=== PATIENT | female | born 1995 | race Two or more races ===

== ENCOUNTER 2017-02-10 06:33 | Inpatient (IN) | payer OTHER ==
[~2017-02-10] VITALS: Ht 157.5 cm; Wt 96.6 kg
[2017-02-10] MEDS ORDERED: IV RINGERS,LACTATED 1000ML 1,000 ML IV SCH (06:59)
[2017-02-10] MEDS ORDERED: LIDOCAINE 1% PF 30 ML VIAL. INJ PRN (07:00)
[2017-02-10] MEDS ORDERED: OXYTOCIN in NORMAL SALINE PREMIX 30 UNIT/500 ML BAG. IV ONE (07:00)
[2017-02-10] MEDS ORDERED: OXYTOCIN 30 UNIT/500 ML PREMIX 500 ML IV PRN ×3 (07:00→07:30)
[2017-02-10] MEDS ORDERED: HYDROCORTISONE 1% TOPICAL OINTMENT 30GM TUBE. TP PRN ×2 (07:30)
[2017-02-10] MEDS ORDERED: PHENYLEPH/MINERAL OIL/PETROLAT RECTAL OINTMENT 28GM TUBE. RC PRN ×2 (07:30)
[2017-02-10] MEDS ORDERED: ACETAMINOPHEN 325 MG TABLET. PO PRN ×2 (07:30)
[2017-02-10] MEDS ORDERED: DOCUSATE SODIUM 100 MG CAPSULE. PO PRN (07:30)
[2017-02-10] MEDS ORDERED: MAG HYDROX/ALUMINUM HYD/SIMETH 30 ML ORAL.SUSP PO PRN ×2 (07:30)
[2017-02-10] MEDS ORDERED: diphenhydrAMINE HCL 25 MG CAPSULE PO PRN ×2 (07:30)
[2017-02-10] MEDS ORDERED: MAGNESIUM HYDROXIDE 2,400 MG/30 ML ORAL.SUSP. PO PRN ×2 (07:30)
[2017-02-10] MEDS ORDERED: ZOLPIDEM 5 MG TABLET. PO PRN ×2 (07:30)
[2017-02-10] MEDS ORDERED: BENZOCAINE 20% TOPICAL AEROSOL SPRAY 57GM CAN. TP PRN ×2 (07:30)
[2017-02-10] MEDS ORDERED: 0.9 % SODIUM CHLORIDE 10 ML DISP.SYRIN. IV PRN ×2 (07:30)
[2017-02-10] MEDS ORDERED: SIMETHICONE 80 MG TAB.CHEW PO PRN ×2 (07:30)
--- NOTE | 2017-02-10 07:40 | PDOC ---
VAGINAL DELIVERY DATE DATE: 02/10/17 TIME: 07:36 : 1 EGA: 31 VAGINAL DELIVERY: VTX VACCUM ASSISTED: No PLACENTA: Spontaneous SEX: Male WEIGHT Weight [ ] Nuchal Cord: No Amniotic Fluid: Clear PAIN: Natural EPISIOTOMY: No EXTENSION: No EBL 400cc COMPLICATIONS PTL Probable abruption CONDITION Stable Signs of Intrauterine Infectio: None Shoulder Dystocia: No DIAGNOSIS 31 wk IUP delivered Problems: JOSÉ SANFORD MD Feb 10, 2017 07:40
[2017-02-10 08:00] LABS: BASO % 0 % (0-3); EOS % 2 % (0-3); HEMATOCRIT 36.1 % (36.0-47.0); HEMOGLOBIN 12.6 g/dL (12.0-15.5); LYMPH # 1.3 x10^3/uL (1.0-4.8); LYMPH % 12 % (24-48); MEAN CORPUSCULAR HEMOGLOBIN 32 pg (25-35); MEAN CORPUSCULAR HGB CONC 35 g/dL (31-37); MEAN CORPUSCULAR VOLUME 91 fL (79-100); MONO % 5 % (0-9); NEUT % 81 % (31-73); PLATELET COUNT 264 x10^3/uL (140-400); RED BLOOD COUNT 3.95 x10^6/uL (3.50-5.40); WHITE BLOOD COUNT 10.5 x10^3/uL (4.0-11.0)
[2017-02-10] MEDS ORDERED: FERROUS SULFATE 325 MG TABLET. PO SCH (08:00)
[2017-02-10] MEDS ORDERED: FERROUS SULFATE 325 MG TABLET PO SCH ×2 (08:00)
[2017-02-10 08:20] LABS: ALBUMIN 2.9 g/dL (3.4-5.0); ALBUMIN/GLOBULIN RATIO 0.9 (1.0-1.7); CALCIUM 8.7 mg/dL (8.5-10.1); CREATININE 0.6 mg/dL (0.6-1.0); GFR 128.8; POTASSIUM 3.8 mmol/L (3.5-5.1); TOTAL BILIRUBIN 0.3 mg/dL (0.2-1.0); TOTAL PROTEIN 6.3 g/dL (6.4-8.2); URIC ACID 3.6 mg/dL (2.6-6.0)
[2017-02-10 08:46] LABS: BARBITURATES NEG (NEG); BENZODIAZEPINES NEG (NEG); CANNABINOIDS NEG (NEG); COCAINE NEG (NEG); METHADONE NEG (NEG); OPIATES NEG (NEG); PHENCYCLIDINE NEG (NEG)
[2017-02-10 08:51] LABS: ETHANOL, URINE NEG (NEG)
--- NOTE | 2017-02-10 11:17 | PDOC1 ---
OB - History Hx of Present Care: Good Care Ultrasounds: No ultrasounds Obstetrical Complications: None Medical Complications: None Past Family/Social History * Past Medical, Surgical, Family and Obstetric Histories reviewed from chart. Blood Type: Unknown Rubella: Unknown RPR/VDRL: Unknown GBS Status: Unknown HBsAG: Unknown OB - Chief Complaint & HPI Date of Admission: Date of Admission: Feb 10, 2017 at 06:33 Chief Complaint/History : 1 Para: 0 EDC: Apr 09, 2017 EGA: 19/03 Reason for admission: active labor, IUP - , labor, vaginal bleeding Admission Nurse Assessment Rev: Yes Problems: OB - Admission Exam Physical Exam HEENT: Normal, Nasal Mucosa Normal, Oropharynx Normal, Moist Membranes, Fontanelles Normal Heart: Other (tachy) Lungs: Clear, Equal Abdomen: Gravid, Non tender Extremities: Normal Pulses, No tenderness or swelling Reflexes: Normal Cervical Dilatation: 10cm Effacement: 100% Station: +2 Membranes: Intact Amniotic Fluid: Clear Heart Rate: Bradycardia Contractions on Admission: < 5 Minutes Apart Intensity: Firm Assessment/Plan Assessment/Plan 19/03 IUP Vag bleeding bradycardia Proceed to delivery JOSÉ SANFORD MD Feb 10, 2017 11:17
[2017-02-10 12:00] VITALS: BP 112/76
[2017-02-10 13:00] VITALS: BP 114/74
[2017-02-10 16:30] VITALS: BP 118/76
[2017-02-10 19:40] VITALS: BP 118/74
[2017-02-10] MEDS: SENNOSIDES/DOCUSATE 8.6/50MG TABLET. PO SCH (21:00)
[2017-02-10] MEDS: IBUPROFEN 800 MG TABLET. PO SCH (21:14)
[2017-02-10 22:30] VITALS: BP 116/66
[2017-02-11 05:51] LABS: BASO # 0.1 x10^3/uL (0.0-0.2); BASO % 1 % (0-3); EOS % 3 % (0-3); HEMATOCRIT 33.6 % (36.0-47.0); HEMOGLOBIN 11.6 g/dL (12.0-15.5); LYMPH # 2.9 x10^3/uL (1.0-4.8); LYMPH % 29 % (24-48); MEAN CORPUSCULAR HEMOGLOBIN 31 pg (25-35); MEAN CORPUSCULAR HGB CONC 35 g/dL (31-37); MEAN CORPUSCULAR VOLUME 90 fL (79-100); MONO % 5 % (0-9); NEUT % 62 % (31-73); PLATELET COUNT 264 x10^3/uL (140-400); RED BLOOD COUNT 3.73 x10^6/uL (3.50-5.40); RED CELL DISTRIBUTION WIDTH 12.8 % (11.5-14.5)
[2017-02-11] MEDS: IBUPROFEN 800 MG TABLET. PO SCH (05:51)
[2017-02-11 05:54] VITALS: BP 131/84
[2017-02-11] MEDS: SENNOSIDES/DOCUSATE 8.6/50MG TABLET. PO SCH (08:47)
[2017-02-11] MEDS ORDERED: MEASLES, MUMPS & RUBELLA VACC 0.5 ML VIAL. VAX SQ ONE (10:00)
[2017-02-11 13:25] VITALS: BP 115/71
--- NOTE | 2017-02-11 13:54 | PDOC3 ---
OB DISCHARGE SUMMARY DATE OF ADMISSION: 02/10/17 DATE OF DISCHARGE: 02/11/17 REASON FOR ADMISSION: labor, PPROM, Vaginal bleeding PROCEDURES: Ultrasound INTRAPARTUM PROCEDURES: Spontanous Vag Deliv PROBLEM LIST AT DISCHARGE Problems Medical Problems: (1) Hypertension affecting Status: Acute DISCHARGE DIAGNOSIS: Others ( delivered) DISCHARGE INFORMATION: Activity, Diet HOSPITAL COURSE Unremarkable CONDITION AT DISCHARGE Stable JOSÉ SANFORD MD Feb 11, 2017 13:54
[2017-02-11] MEDS ORDERED: NAPR500T3 PO (13:57)
[2017-02-11] MEDS ORDERED: HYDR-971 PO (13:57)
--- NOTE | 2017-02-13 13:48 | PATHOLOGY ---
PATHOLOGY REPORT * * * * * * * * FINAL DIAGNOSIS: Placenta, vaginal delivery: - Early third trimester placenta, 394 grams. - Attached trivascular umbilical cord and membranes without significant inflammation. - Placental parenchyma with no significant histopathologic diagnosis. (MARIA ISABEL:; d/t: 02/13/17) REPORT ELECTRONICALLY SIGNED BY: Zeb Miller M.D. DATE/TIME: 02/13/2017 13:47 * * * * * * * * GROSS PATHOLOGY: Received in formalin labeled "[place]," and additionally labeled on the requisition as, "placenta and cord". Received is a murillo placenta, with attached membranes and umbilical cord. The trimmed placental weight is 394 grams and the disc measures 17.2 x 15.4 x 3.1 cm. The membranes are pale rivera and translucent in appearance, and the site of membrane rupture is 3.5 cm from the placental margin. The surface is intact displaying a normal arborizing vasculature pattern. The 3 vessel umbilical cord measures 49.4 by up to 2.0 cm and inserts acentrically, 4.0 cm from the closest placental margin. The umbilical cord is white-rivera to pelayo-rivera in appearance with moderate helical twisting. The maternal surface is intact and complete; a moderate amount of adherent blood coagulum is seen on the surface. Sectioning reveals red-brown cut surfaces with no grossly distinct nodules or lesions. Sections are submitted as follows: A1 umbilical cord of surface vessels A2 membrane roll and peripheral placental segment A3-A4 full-thickness placental dissection, divided into and maternal aspects. (CAA; 02/12/2017) INITIAL CPT CODE(S): A; 43514 Professional services performed by [facility] at [address] [address] Technical services performed by [facility] at [address] [place] [address], [address], [place] [address]. SPECIMEN(S) RECEIVED: A.Placenta CLINICAL HISTORY: IUP, premature vaginal delivery of 3lb 12oz male @ 0716 on 02/10/17, apgars 8-9, baby transferred to [facility], , EDC 04/09/17, precipitous labor, EGA 31.5 weeks PATIENT: FORDRANDY LIZAMAIA Y /AGE: 1008/16/1995 (Age: 21) PATIENT #: [id number] ALT CASE #: SPECIMEN COLLECTION DATE: 02/10/2017 SPECIMEN RECEIVED DATE: 02/11/2017 [facility] - [address] [place] [address] - PHONE: [phone] * * * END OF REPORT * * *
== END 2017-02-11 14:05 | disposition home or self-care (01) | DRG 775 ==
LOC: OBSVTOIN 06:33 → 3 SO LND 06:33 → 3 NORTH 11:26
PROVIDERS: ADMIT Specialist; ATTEND Specialist
PROC: 10E0XZZ Delivery of Products of Conception, External Approach (ICD-10-PCS; principal; 2017-02-10)
DX: O42.913 Preterm premature rupture of membranes, unspecified as to length of time between rupture and onset of labor, third trimester (principal); O60.10X0 Preterm labor with preterm delivery, unspecified trimester, not applicable or unspecified; O76 Abnormality in fetal heart rate and rhythm complicating labor and delivery; Z3A.31 31 weeks gestation of pregnancy; Z37.0 Single live birth
CPT/HCPCS: 36415; 80053; 84550; 85027; 86593; 86850; 86900; 86901; 90707; G0481; J2590

== ENCOUNTER 2017-03-04 19:23 | Emergency (ER) | payer OTHER ==
[~2017-03-04] VITALS: Ht 157.5 cm; Wt 89.4 kg
[~2017-03-04 19:23] MED LIST: HYDR-971 PO; NAPR500T3 PO
[2017-03-04] MEDS ORDERED: LIDO:MAALOX:DONNATAL 1:1:1 15 ML SINGLE DOSE SWSW ONE (20:30)
[2017-03-04] MEDS ORDERED: HYDROcodone/APAP 5/325MG 1 TAB TABLET PO ONE (21:00)
[2017-03-04] MEDS ORDERED: FAMOTIDINE 20 MG TABLET. PO ONE (21:00)
[2017-03-04 21:04] VITALS: BP 134/72
--- NOTE | 2017-03-04 21:05 | ED.ADGEN ---
Past Medical History Past Medical History: No Pertinent History Past Surgical History: Other Additional Past Surgical Histo: 'some intestine surgery damien' Alcohol Use: None Drug Use: None Adult General Chief Complaint Chief Complaint: ABDOMINAL PAIN HPI HPI Patient is a 21 year old epigastric pain starting approximately 35 minutes prior to ED arrival. He spicy tacos. Patient states the pain is mild to moderate described as sharp. It is not associated with nausea vomiting flank or shoulder pain. No medications or treatments taken prior to ED arrival. Review of Systems Review of Systems Review symptoms as per history of present illness. Current Medications Current Medications Current Medications Medications (Trade) Dose Ordered Sig/Phu Start Time Stop Time Status Last Admin Dose Admin Acetaminophen/ Hydrocodone Bitart (Lortab 5/325) 1 tab 1X ONCE 03/04/17 21:00 03/04/17 21:01 DC Famotidine (Pepcid) 20 mg 1X ONCE 03/04/17 21:00 03/04/17 21:01 DC Multi-Ingredient Mouthwash/Gargle (Gi Cocktail Single Dose) 30 ml 1X ONCE 03/04/17 20:30 03/04/17 20:31 DC 03/04/17 20:32 30 ML Allergies Allergies Allergies Coded Allergies Type Severity Reaction Last Updated Verified No Known Drug Allergies 02/10/17 No Physical Exam Physical Exam Constitutional: Well developed, well nourished, no acute distress, non-toxic appearance. HENT: Normocephalic, atraumatic, bilateral external ears normal, oropharynx moist, no oral exudates, nose normal. Eyes: PERRLA, EOMI, conjunctiva normal. Neck: Normal range of motion, no tenderness. Cardiovascular:Heart rate regular rhythm, no murmur . Lungs & Thorax: Bilateral breath sounds clear to auscultation . Abdomen: Bowel sounds normal, soft, epigastric pain, tenderness, no rebound rigidity or guarding. Skin: Warm, dry. Back: No tenderness. Extremities: No tenderness. Neurologic: Alert and oriented X 3, normal motor function, normal sensory function, no focal deficits noted. Psychologic: Affect normal, judgement normal, mood normal. Current Patient Data Vital Signs Vital Signs Date Time Temp Pulse Resp B/P (MAP) Pulse Ox O2 Delivery O2 Flow Rate FiO2 03/04/17 19:39 98.0 91 18 122/66 (84) 99 Room Air 98.0 EKG EKG [] Radiology/Procedures Radiology/Procedures [] Course & Med Decision Making Course & Med Decision Making Pertinent Labs and Imaging studies reviewed. (See chart for details) [GI cocktail given with limited relief. Pepcid and [place] given for additional relief. Patient requests discharge home and states she will follow up with her PCP if symptoms persist. Return precautions reviewed.] Dragon Disclaimer Dragon Disclaimer This electronic medical record was generated, in whole or in part, using a voice recognition dictation system. CANDICE REYES DO March 04, 2017 21:05
== END 2017-03-04 21:17 | disposition home or self-care (01) ==
LOC: ER 19:23
DX: R10.13 Epigastric pain (principal)
CPT/HCPCS: 99283

== ENCOUNTER 2021-09-03 13:45 | Emergency (ER) | payer SELFPAY ==
[~2021-09-03] VITALS: Ht 157.5 cm; Wt 107.7 kg
[~2021-09-03 13:45] MED LIST changes: +HYDR-3164 PO; -HYDR-971 PO; +NAPR-514 PO; -NAPR500T3 PO
[2021-09-03 14:46] VITALS: BP 135/70
[2021-09-03 16:31] LABS: BILIRUBIN,URINE NEGATIVE (NEG); CLARITY,URINE CLEAR; COLOR,URINE YELLOW; NITRITE,URINE NEGATIVE (NEG); PROTEIN,URINE NEGATIVE (NEG-TRACE)
[2021-09-03 16:39] LABS: BACTERIA,URINE 0 /HPF (0-FEW); RBC,URINE TNTC /HPF (0-2); WBC,URINE 0 /HPF (0-4)
--- NOTE | 2021-09-03 16:47 | PHYS DOC ---
Past Medical History Past Medical History: No Pertinent History Past Surgical History: Other Additional Past Surgical Histo: 'some intestine surgery damien' Smoking Status: Never Smoker Alcohol Use: None Drug Use: None General Adult EDM: Chief Complaint: ABDOMINAL PAIN HPI: HPI: Patient is a 26-year-old female who presents to the emergency department for vaginal bleeding and left lower pelvic and suprapubic pain. She reports that the bleeding started on Friday. She rates it 7 out of 10 and describes as an intermittent cramping/sharp pain. The vaginal bleeding is bright red with blood clots. She also reports some nausea and lightheadedness. She denies any vaginal discharge, syncope, vomiting, urinary complaints, fevers, diarrhea. She reports that her last menstrual period was July 28. She states when she had this menses it only lasted 3 days. Review of Systems: Review of Systems: Constitutional: See HPI GI: See HPI : See HPI Neurologic: See HPI Heart Score: C/O Chest Pain: N/A Risk Factors: Risk Factors: DM, Current or recent (<one month) smoker, HTN, HLP, family history of CAD, obesity. Risk Scores: Score 0 - 3: 2.5% MACE over next 6 weeks - Discharge Home Score 4 - 6: 20.3% MACE over next 6 weeks - Admit for Clinical Observation Score 7 - 10: 72.7% MACE over next 6 weeks - Early Invasive Strategies Allergies: Allergies: Allergies Coded Allergies Type Severity Reaction Last Updated Verified No Known Drug Allergies 02/10/17 No Physical Exam: PE: Constitutional: Well developed, well nourished, no acute distress, non-toxic appearance. [] HENT: Normocephalic, atraumatic, bilateral external ears normal, oropharynx moist, no oral exudates, nose normal. [] Eyes: PERRL, EOMI, conjunctiva normal, no discharge. [] Neck: Normal range of motion, no stridor Cardiovascular:Heart rate regular rhythm, no murmur [] Lungs & Thorax: Bilateral breath sounds clear to auscultation [] Abdomen: Bowel sounds normal, soft,suprapubic and left lower pelvic tenderness with palpation, no rebound tenderness, no rigidity, no guarding, no masses, no pulsatile masses. [] Skin: Warm, dry, no erythema, no rash. [] Back: No tenderness, no CVA tenderness. [] Extremities: No tenderness, no cyanosis, no clubbing, ROM intact, no edema. [] Neurologic: Alert and oriented X 3, normal motor function, normal sensory function, no focal deficits noted. [] Psychologic: Affect normal, judgement normal, mood normal. [] Current Patient Data: Labs: Laboratory Tests Test 09/03/21 16:07 Urine Collection Type Unknown Urine Color Yellow Urine Clarity Clear Urine pH 7.0 (<5.0-8.0) Urine Specific [place] 1.020 (1.000-1.030) Urine Protein Negative mg/dL (NEG-TRACE) Urine Glucose (UA) Negative mg/dL (NEG) Urine Ketones (Stick) Negative mg/dL (NEG) Urine Blood Large (NEG) Urine Nitrite Negative (NEG) Urine Bilirubin Negative (NEG) Urine Urobilinogen Dipstick 1.0 mg/dL (0.2 mg/dL) Urine Leukocyte Esterase Small (NEG) Urine RBC Tntc /HPF (0-2) Urine WBC 0 /HPF (0-4) Urine Squamous Epithelial Cells Mod /LPF Urine Bacteria 0 /HPF (0-FEW) Urine Mucus Marked /LPF Microbiology 09/03/21 Wet Prep - Final, Complete Pelvic exam external genitalia: no lesions, unremarkable internal genitalia: bright red vaginal bleeding with clots noted, no vaginal discharge noted L. adnexal tenderness with palpation, no cmt Vital Signs: Vital Signs Date Time Temp Pulse Resp B/P (MAP) Pulse Ox O2 Delivery O2 Flow Rate FiO2 09/03/21 14:46 98.1 72 10 135/70 (91) 100 Room Air 98.1 EKG: EKG: [] Radiology/Procedures: Radiology/Procedures: []REASON: l pelvic and suprapubic pain, vaginal bleeding PROCEDURE: PELVIS W/TV EXAM: Transvaginal complete pelvic ultrasound INDICATION: Pelvic pain, heavy vaginal bleeding. COMPARISON: No priors TECHNIQUE: Transabdominal and transvaginal grayscale and duplex Doppler sonography was performed. FINDINGS: Transabdominal pelvic sonography demonstrates anteverted uterus measuring 7.8 x 4.3 x 4.4 cm. Ovaries could not be visualized transabdominal. Transvaginal pelvic sonography demonstrates small cervical cysts. Uterus measures 8.1 x 3.6 x 4.2 cm. Limited visualization of the uterine fundus due to shadowing. No uterine mass documented. Endometrium thickness 1.2 cm which is normal. Limited visualization of the ovaries due to shadowing. Right ovary measures 1.7 x 2.4 x 2.0 cm. Left ovary measures 2.2 x 3.0 x 2.3 cm. There are a few small subcentimeter ovarian follicles. Grossly intact ovarian blood flow. No adnexal masses documented. No pelvic fluid. IMPRESSION: Normal exam. Electronically signed by: Nadine Schafer MD (09/03/2021 7:21 PM) [facility] [place]ATED and SIGNED BY: NADINE SCHAFER MD DATE: 09/03/21 [id number] 0 Course & Med Decision Making: Course & Med Decision Making Pertinent Labs and Imaging studies reviewed. (See chart for details) [] Patient presents emergency department for vaginal bleeding and left lower and suprapubic abdominal tenderness. Work-up in the ER consisted of urinalysis, blood work. Pelvic exam was performed. Patient tolerated procedure. Cultures obtained for wet prep and GC chlamydia testing. hCG negative. Lab work unremarkable, wet prep negative for any acute findings.Pelvic exam did not indicate uncontrollable vaginal bleeding. Pelvic ultrasound showed no acute findings there is good blood flow to both ovaries. Patient advised to take anti-inflammatory medications for her pain and follow-up with [facility]. I d iscussed with patient all findings and diagnostic testing as well as the need to follow-up with PCP for further evaluation and treatment or return to the ER if any new or worsening symptoms. Strict return precautions were also discussed at length. Patient voiced understanding and agreement with the plan. Patient is hemodynamically stable at the time of disposition. Dragon Disclaimer: [place]mane Disclaimer: This electronic medical record was generated, in whole or in part, using a voice recognition dictation system. Departure Departure Impression: Primary Impression: Vaginal bleeding Disposition: HOME / SELF CARE / HOMELESS Condition: GOOD Referrals: NO PCP (PCP) RULA PALACIOS MD Patient Instructions: Menorrhagia Additional Instructions: You were seen in the emergency department for vaginal bleeding in the pelvic pain. Your lab work is unremarkable, you do not have a urinary tract infection and you are not . We tested you in the emergency department for sexually transmitted infection. This will result in approximately 2 days and y ou will be notified via telephone with the results. Avoid sexual intercourse until you receive your results. Your pelvic ultrasound is unremarkable. You can take anti-inflammatory medications for your pain. You need to follow-up with an [facility], if you do not have one you can contact the [facility] that was referred to you on your discharge papers. I would advise you to contact them tomorrow to set up a follow-up appointment. Return to the emergency department if you develop worsening of your vaginal bleeding which would you saturating more than one pad an hour, lightheadedness, intractable nausea or vomiting, high fevers refractory to treatment, chest pain, shortness of breath or any new or worsening concerns. EMERGENCY DEPARTMENT GENERAL DISCHARGE INSTRUCTIONS Thank you for coming to [facility] Emergency Department (ED) today and trusting us with you care. We trust that you had a positive experience in our Emergency Department. If you wish to speak to the department management, you may call the Director at [phone]. YOUR FOLLOW UP INSTRUCTIONS ARE FOLLOWS: 1. Do you have a private Doctor? If you do not have a private doctor, please ask for a resource list of physicians or clinics that may be able to assist you with follow up care. 2. The Emergency Physicain has interpreted your x-rays. The X-Ray specialist will also review them. If there is a change in the findings, you will be notified in 48 hours when at all possible. 3. A lab test or culture has been done, your results will be reviewed and you will be notified if you need a change in treatment. ADDITIONAL INSTRUCTIONS AND INFORMATION: 1. Your care today has been supervised by a physician who is specially trained in emergency care. Many problems require more than one evaluation for a complete diagnosis and treatment. We recommend that you schedule your follow up appointment as david mmended to ensure complete treatment of you illness or injury. If you are unable to obtain follow up care and continue to have a problem, or if your condition worsens, we recommend that you return to the ED. 2. We are not able to safely determine your condition over the phone nor are we able to give sound medical advice over the phone. For these safety reasons, if you call for medical advice we will ask you to come to the ED for further evaluation. 3. If you have any questions regarding these discharge instructions please call the ED at [phone]. SAFETY INFORMATION: In the interest of safety, wellness, and injury prevention; we encourage you to wear your sealbelt, if you smoke; quite smoking, and we encourage family to use a protective helmet for bicycling and other sporting events that present an increased risk for head injury. IF YOUR SYMPTOMS WORSEN OR NEW SYMPTOMS DEVELOP, OR YOU HAVE CONCERNS ABOUT YOUR CONDITION; OR IF YOUR CONDITION WORSENS WHILE YOU ARE WAITING FOR YOUR FOLLOW UP APPOINTMENT; EITHER CONTACT YOUR PRIMARY CARE DOCTOR, THE PHYSICIAN WHOSE NAME AND NUMBER YOU WERE GIVEN, OR RETURN TO THE ED IMMEDIATELY. DEION NAJERA CHANGE HOUSE ATTENDANT Sep 03, 2021 16:47
[2021-09-03 17:16] LABS: BASO # 0.1 x10^3/uL (0.0-0.2); BASO % 1 % (0-3); EOS # 0.2 x10^3/uL (0.0-0.7); EOS % 3 % (0-3); HEMATOCRIT 39.6 % (36.0-47.0); HEMOGLOBIN 13.4 g/dL (12.0-15.5); LYMPH % 21 % (24-48); MEAN CORPUSCULAR HEMOGLOBIN 31 pg (25-35); MEAN CORPUSCULAR HGB CONC 34 g/dL (31-37); MEAN CORPUSCULAR VOLUME 93 fL (79-100); MONO # 0.3 x10^3/uL (0.0-1.1); MONO % 4 % (0-9); NEUT # 6.8 x10^3/uL (1.8-7.7); NEUT % 72 % (31-73); PLATELET COUNT 364 x10^3/uL (140-400); RED BLOOD COUNT 4.27 x10^6/uL (3.50-5.40); RED CELL DISTRIBUTION WIDTH 12.9 % (11.5-14.5); WHITE BLOOD COUNT 9.4 x10^3/uL (4.0-11.0)
[2021-09-03 17:29] LABS: CALCIUM 8.8 mg/dL (8.5-10.1); CREATININE 0.7 mg/dL (0.6-1.0); GFR 102.8; POTASSIUM 4.2 mmol/L (3.5-5.1)
[2021-09-03 17:35] LABS: ALBUMIN 3.8 g/dL (3.4-5.0); ALBUMIN/GLOBULIN RATIO 1.4 (1.0-1.7); TOTAL BILIRUBIN 0.4 mg/dL (0.2-1.0); TOTAL PROTEIN 6.6 g/dL (6.4-8.2)
[2021-09-03 18:07] LABS: U PREG PATIENT NEGATIVE (NEG)
--- NOTE | 2021-09-03 19:23 | RAD ---
EXAM: Transvaginal complete pelvic ultrasound INDICATION: Pelvic pain, heavy vaginal bleeding. COMPARISON: No priors TECHNIQUE: Transabdominal and transvaginal grayscale and duplex Doppler sonography was performed. FINDINGS: Transabdominal pelvic sonography demonstrates anteverted uterus measuring 7.8 x 4.3 x 4.4 cm. Ovaries could not be visualized transabdominal. Transvaginal pelvic sonography demonstrates small cervical cysts. Uterus measures 8.1 x 3.6 x 4.2 cm. Limited visualization of the uterine fundus due to shadowing. No uterine mass documented. Endometriu m thickness 1.2 cm which is normal. Limited visualization of the ovaries due to shadowing. Right ovar y measures 1.7 x 2.4 x 2.0 cm. Left ovary measures 2.2 x 3.0 x 2.3 cm. There are a few small subcenti meter ovarian follicles. Grossly intact ovarian blood flow. No adnexal masses documented. No pelvic f luid. IMPRESSION: Normal exam. Electronically signed by: Jose Schafer MD (09/03/2021 7:21 PM) [facility]
[2021-09-04 17:14] LABS: GC PROBE Negative (Negative)
== END 2021-09-03 19:50 | disposition home or self-care (01) ==
LOC: ER 13:45
DX: O46.91 Antepartum hemorrhage, unspecified, first trimester (principal); R10.32 Left lower quadrant pain; R11.0 Nausea; R42 Dizziness and giddiness; Z3A.00 Weeks of gestation of pregnancy not specified
CPT/HCPCS: 76830; 76856; 80053; 81001; 81025; 85025; 87086; 87491; 87591; 99284; Q0111